=== PATIENT | male | born 1935 | race African-American/Black ===

== ENCOUNTER → 2017-09-09 | Outpatient (CLI) | payer OTHER ==
[~2017-09-09] MED LIST: DIATRIZOATE MEGL/DIATRIZOA SOD 120 ML BTL PO ONE
--- NOTE | 2017-09-10 10:26 | Diagnostic Imaging Report ---
PROCEDURE:X-RAY ABDOMEN - KUB COMPARISON:None. INDICATIONS:FLOUR MIXER FOR BARIUM ENEMA-PATIENT NOT PREPPED PROPERLY FINDINGS: Examination was performed as nurse gynecology for barium enema. There is a non-obstructed bowel-gas pattern. Large amount of retained feces is present in the colon and rectum. There are no calcifications projected over the renal shadows, expected course of the ureters or bladder. There are no acute osseous abnormalities. The lung bases are clear. CONCLUSION: Large amount of retained feces. The barium enema was not performed. Please repeat bowel prep for barium enema. Dictated by: Daniel Townsend M.D. on 09/10/2017 at 10:28 Electronically approved by: Daniel Townsend M.D. on 09/10/2017 at 10:28
== END ==
LOC: DX 11:26
PROVIDERS: ATTEND Internal Medicine
DX: K63.9 Disease of intestine, unspecified (principal)
CPT/HCPCS: 74018; Q9963